=== PATIENT | female | born 1955 | race Caucasian/White ===

== ENCOUNTER 2020-08-18 16:44 | Emergency (ER) | payer MEDICARE, SELFPAY ==
[2020-08-18 16:59] VITALS: BP 138/79; PULSE 79; RESP 16; TEMP 36.6; O2SAT 97
--- NOTE | 2020-08-18 17:17 | ED.SKABFB ---
HPI - Skin/Abscess/Foreign Bdy General Chief complaint: Skin/Abscess/Foreign Body Stated complaint: rash Time Seen by Provider: 08/18/20 17:10 Source: patient and RN notes reviewed Mode of arrival: ambulatory Limitations: no limitations History of Present Illness HPI narrative: Patient presents today complaining of a pruritic rash to her neck, behind both ears, left forearm, right flank and waistband. Denies any new foods, medications, plant contact, pets, or any other changes in household products. Denies any recent illnesses. She has tried rubbing alcohol without relief. States her had shingles 2 weeks ago, but she has had the shingles vaccine. MD complaint: rash Related Data Home Medications Medication Instructions Recorded Confirmed Macrobid 08/18/20 atorvastatin 08/18/20 fluoxetine 20 mg PO DAILY 08/18/20 08/18/20 meloxicam 15 mg PO DAILY 08/18/20 08/18/20 montelukast 10 mg PO DAILY 08/18/20 08/18/20 omeprazole 08/18/20 oxybutynin chloride 15 mg PO DAILY 08/18/20 08/18/20 tizanidine 2 mg PO HS 08/18/20 08/18/20 Allergies Allergy/AdvReac Type Severity Reaction Status Date / Time naproxen [From Naprosyn] Allergy Unknown Verified 08/18/20 16:59 Review of Systems Review of Systems: Narrative: CONSTITUTIONAL: Denies body aches, fever, chills, or sweats. EYES: Denies visual changes, redness, or discharge. ENT: Denies rhinorrhea, congestion, sore throat, or otalgia. CARDIOVASCULAR: Denies chest pain, palpitations, or edema. RESPIRATORY: Denies cough or dyspnea. GASTROINTESTINAL: Denies abdominal pain, nausea, vomiting, or diarrhea. GENITOURINARY: Denies dysuria or hematuria. SKIN: Denies wounds. + Pruritic rash MUSCULOSKELETAL: Denies back pain, joint pain, or myalgia. NEUROLOGIC: Denies headache, numbness, tingling, or weakness. PSYCH: Denies depression or anxiety. PMFSH Comments At time of signature, I have reviewed and agree with nursing past medical, surgical, social and family history unless otherwise noted. Please see nursing chart for further information. There is no relevant family history pertinent to the presenting complaint Exam Narrative: Exam Narrative: GENERAL: Well-appearing, well-nourished, and in no acute distress. HEAD: Normocephalic, atraumatic. EYES: EOMI. No redness or drainage. Conjunctivae normal. ENT: Mucous membranes pink and moist. NECK: Normal AROM. Supple. No lymphadenopathy. CHEST: No respiratory distress. Clear to auscultation. HEART: Regular rate and rhythm. No murmur appreciated. Normal peripheral pulses. ABDOMEN: Soft, nontender, nondistended, normal active bowel sounds. MUSCULOSKELETAL: No bony tenderness. EXTREMITIES: Normal range of motion. No edema. SKIN: Warm, dry. Capillary refill normal. Normal skin turgor. Small erythematous urticarial rash that is most concentrated to the posterior neck, with scattered lesions to the left forearm, right waistband/flank. Unrelated, patient has some erythema and linear skin breakdown behind her left ear, related to tight mask band fitting. This was brought to her attention and she has been instructed to use a different kind of mask going forward until this heals. NEURO: No focal deficits. Alert and oriented x3. Gait steady. PSYCH: Normal affect. No signs of depression or anxiety. Course Course Emergency Course: After patient's exam and discharge, RN informed me that patient is current on a course of Macrobid for UTI. [facility] She denied any new rx for me. Vital Signs Vital signs: Vital Signs Temperature 97.9 F 08/18/20 16:59 Pulse Rate 79 08/18/20 16:59 Respiratory Rate 16 08/18/20 16:59 Blood Pressure 138/79 08/18/20 16:59 Pulse Oximetry 97 08/18/20 16:59 Temperature 97.9 F 08/18/20 16:59 Pulse Rate 79 08/18/20 16:59 Respiratory Rate 16 08/18/20 16:59 Blood Pressure 138/79 08/18/20 16:59 Pulse Oximetry 97 08/18/20 16:59 Reviewed. Pt has been ins
== END 2020-08-18 17:25 | disposition home or self-care (01) ==
PROVIDERS: Emergency Provider Nurse Practitioner; PCP Internal Medicine
DX: R21 Rash and other nonspecific skin eruption (principal); E78.00 Pure hypercholesterolemia, unspecified; M19.90 Unspecified osteoarthritis, unspecified site
CPT/HCPCS: 99213; G0463

== ENCOUNTER 2020-09-22 12:29 | Emergency (ER) | payer MEDICARE, SELFPAY ==
[2020-09-22 12:36] VITALS: BP 119/78; PULSE 85; RESP 20; TEMP 36.4; O2SAT 100
[2020-09-22 12:45] VITALS: BP 119/78; PULSE 85; RESP 20; TEMP 36.4; O2SAT 100
--- NOTE | 2020-09-22 13:10 | ED.FEMALEGU ---
HPI - Female Genitourinary General Chief complaint: Urogenital-Female Stated complaint: uti symptoms Time Seen by Provider: 09/22/20 13:03 Source: patient and RN notes reviewed Mode of arrival: ambulatory Limitations: no limitations History of Present Illness HPI Narrative: 65-year-old female presents with concern for urinary tract infection. She reports on Wednesday she began having dysuria, frequency, occasional incontinence, right low back pain, suprapubic pressure. Reports a feeling of not emptying her bladder. She denies fever, vomiting. Reports nausea. Denies hematuria MD elicited complaint: UTI Related Data Home Medications Medication Instructions Recorded Confirmed meloxicam 15 mg PO DAILY 08/18/20 09/22/20 montelukast 10 mg PO DAILY 08/18/20 09/22/20 omeprazole 20 mg PO DAILY 08/18/20 09/22/20 oxybutynin chloride 15 mg PO DAILY 08/18/20 09/22/20 tizanidine 2 mg PO HS PRN 08/18/20 09/22/20 albuterol sulfate 1 inh INHALATION QID PRN 09/22/20 09/22/20 atorvastatin 10 mg PO DAILY 09/22/20 09/22/20 cholecalciferol (vitamin D3) 09/22/20 [Vitamin D3] [id number] C-Mn cap PO 09/22/20 [Glucosamine 1500 Complex] omega 4-jbm-nlw-fish oil-krill cap PO 09/22/20 [MegaRed Advanced 4-in-1] Allergies Allergy/AdvReac Type Severity Reaction Status Date / Time naproxen [From Naprosyn] Allergy Unknown Verified 09/22/20 12:36 Review of Systems Review of Systems: Narrative: CONSTITUTIONAL: Denies malaise, chills, sweats, or fever. CARDIOVASCULAR: Denies chest pain, palpitations, or edema. RESPIRATORY: Denies cough or dyspnea. GASTROINTESTINAL: Denies abdominal pain, vomiting, diarrhea. Reports nausea GENITOURINARY: Reports dysuria frequency, incontinence, urgency. Denies hematuria. MUSCULOSKELETAL: Denies myalgia. All systems reviewed & are unremarkable except as noted in HPI and below PMFSH Comments At time of signature, agree with nursing past medical, surgical, social and family history. There is no relevant family history pertinent to the presenting complaint Exam Narrative: Exam Narrative: GENERAL: Well-appearing, well-nourished, and in no acute distress. HEAD: Normocephalic. EYES: PERRLA, conjunctivae clear. NECK: Supple. No lymphadenopathy CHEST: Clear to auscultation. No respiratory distress. HEART: Regular rate and rhythm. ABDOMEN: Soft, nontender upon palpation, nondistended, normal active bowel sounds, no palpable or pulsatile masses, no guarding. Right CVA tenderness SKIN: Warm, dry, no rash. NEURO: Alert and oriented x3. PSYCH: Normal mood and affect Course Course Emergency Course: Patient is aware of diagnosis, understands and agrees to treatment plan. Anticipatory guidance given. Patient agrees to follow-up as directed and is aware of reasons to seek care at the emergency department. Portions of this record may have been created with voice recognition software Vital Signs Vital signs: Vital Signs Temperature 97.6 F 09/22/20 12:36 Pulse Rate 85 09/22/20 12:36 Respiratory Rate 20 09/22/20 12:36 Blood Pressure 119/78 09/22/20 12:36 Pulse Oximetry 100 09/22/20 12:36 Temperature 97.6 F 09/22/20 12:45 Pulse Rate 85 09/22/20 12:45 Respiratory Rate 20 09/22/20 12:45 Blood Pressure 119/78 09/22/20 12:45 Pulse Oximetry 100 09/22/20 12:45 Reviewed. MDM - Female Genitourinary MDM Narrative Medical decision making narrative: Exam findings and UA show no acute concerns or changes; patient is non-toxic appearing and is in no distress. Patient is appropriate for outpatient treatment and follow-up. Differential Diagnosis Differential diagnosis: Likely urinary tract infection and cystitis Lab Data Labs: Urine Glucose Negative Reference Range: Negative Urine Bilirubin Negative Reference Range: Negative Urine Ketone
== END 2020-09-22 13:17 | disposition home or self-care (01) ==
PROVIDERS: Emergency Provider Nurse Practitioner; PCP Internal Medicine
DX: R30.0 Dysuria (principal); R35.0 Frequency of micturition; M54.5 Low back pain; R10.30 Lower abdominal pain, unspecified
CPT/HCPCS: 81003; 87077; 87086; 87088; 87186; 99213; G0463

== ENCOUNTER 2022-02-16 19:08 | Emergency (ER) | payer MEDICARE, SELFPAY ==
--- NOTE | 2022-02-16 19:13 | ED.URI ---
HPI - URI/Sore Throat General Chief Complaint: Upper Respiratory Infection Stated Complaint: Sinus pain Time Seen by Provider: 02/16/22 19:12 Source: patient Mode of arrival: ambulatory Limitations: no limitations History of Present Illness HPI Narrative: Ms. Salvador is a 66-year-old female patient presenting to the clinic today with complaints of sinus pain and drainage x2 weeks. She reports she was on around azithromycin that she had received by her primary care doctor. Reports she has finished and she is not feeling any better. Has a lot of nasal congestion, sinus pressure, and yellow nasal discharge. She denies any fever or chills. MD elicited complaint: sore throat and nasal congestion Related Data Allergies Allergy/AdvReac Type Severity Reaction Status Date / Time cortisone Allergy Unknown Verified 02/16/22 19:29 naproxen [From Naprosyn] Allergy Unknown Verified 02/16/22 19:28 Review of Systems Review of Systems: Pertinent positives per HPI. Patient denies any fever, chills, rash, headache, visual changes, dizziness, cough, shortness of breath, chest pain, palpitations, nausea, vomiting, diarrhea, constipation, abdominal pain, or any urinary issues. [facility] Comments At the time of my signature, I reviewed and agree with the nursing past medical, surgical, social, and family history. There is no relevant family history pertinent to the patient complaint. Exam Narrative: General: Well-developed, obese, in no apparent distress Head: Normocephalic, atraumatic Eyes: Pupils equally round and reactive to light bilaterally, EOM intact, sclera and conjunctive clear, no discharge, lids normal Ears: TMs intact and dull, ear canals clear, no drainage, grossly hearing normal. Nose: Nares patent, clear nasal discharge, moderate inflammation to the anterior and posterior turbinates with white striate, sinus tenderness over the maxillary and frontal sinuses. Mouth: Oral pharynx without lesions or masses, good dentition, MMM. Postnasal drip Neck: Supple, trachea midline, no enlargement of anterior or posterior cervical nodes, no thyroid masses or goiter palpable. Cardio: Regular rate and rhythm, s1 and s2 normal, no murmur appreciated. Resp: Clear to auscultation bilaterally, no rhonchi, rales, wheezing or rubs Course Course Emergency Course: Portions of this record may have been created with voice recognition software. Level of Care: Express Care Visit Vital Signs Vital signs: Vital signs reviewed MDM - URI/Sore Throat MDM Narrative Medical decision making narrative: Upon assessment patient is resting comfortably in the chair in the exam room. She has sinus pain and drainage x2 weeks. She is afebrile. Has tenderness to palpation over the maxillary and frontal sinuses. The bilateral turbinates are inflamed with white striae. As azithromycin is found to be often resistant to sinus infections, I will place her on Augmentin. Differential Diagnosis Differential diagnosis: Likely upper respiratory infection, otitis media, sinusitis, viral infection, bronchitis, influenza and pharyngitis Discharge Plan Discharge Clinical Impression: Acute bacterial rhinosinusitis Patient Disposition: Home, Self-Care Condition: Stable Instructions: Antibiotic Form, Rhinosinusitis (ED) Additional Instructions: Take prescription medications only as prescribed Augmentin as prescribed Increase fluids and stay well hydrated Tylenol/motrin for pain/fever Flonase and OTC antihistamines as directed Vicks vapor rub to open sinuses Sinus rinses for congestion Cepacol spray, cough drops, throat lozenges, warm tea with honey/lemon, gargle salt water to soothe throat BRAT diet for diarrhea Clear liquids x 24 hours then advance as tolerated for nausea/vomiting May return to the clinic if symptoms worsen Go to the ED if you develop dehydration, weakness, lethargy, shortness of breath, or chest pain. Follow up with your PCP i
[2022-02-16 19:20] VITALS: BP 134/83; PULSE 93; RESP 12; TEMP 36.8; O2SAT 99
== END 2022-02-16 19:48 | disposition home or self-care (01) ==
PROVIDERS: Emergency Provider Nurse Practitioner Family; PCP Internal Medicine
DX: J01.90 Acute sinusitis, unspecified (principal); E78.00 Pure hypercholesterolemia, unspecified; H26.9 Unspecified cataract
CPT/HCPCS: 99213; G0463